=== PATIENT | female | born 1935 | race Caucasian/White ===

== ENCOUNTER 2016-07-07 07:00 | Outpatient (CLI) | payer MEDICARE ==
[~2016-07-07] VITALS: Ht 154.9 cm; Wt 56.8 kg
[~2016-07-07 07:00] MED LIST: BAYER CHEWABLE81 MG PO; BYSTOLIC5 MG PO; NITRO-DUR0.4 MG TD; PAMELOR10 MG PO; PRAVACHOL20 MG PO; PROTONIX40 MG PO
[2016-07-07 07:22] VITALS: BP 151/71; Ht 154.9 cm; Wt 56.8 kg
[2016-07-07] MEDS ORDERED: PLAVIX75 MG PO (07:28)
[2016-07-07 07:37] LABS: EOSINOPHILS 4.3 % (0-7); HEMATOCRIT 42.7 % (36.0-48.0); HEMOGLOBIN 14.8 g/dL (12-16); IMMATURE GRANULOCYTES 0.2 % (0-5); LYMPHOCYTES 41.6 % (15-50); MCHC 34.7 g/dL (31.0-37.0); MCV 95.3 fL (80.0-100.0); MEAN PLATELET VOLUME 10.3 fL (7.4-10.4); NEUTROPHILS 40.9 % (40-80); PLATELET COUNT 212 10x3/uL (130-400); RBC 4.48 10x6/uL (4.00-5.40); RDW 11.9 % (11.5-14.5)
[2016-07-07 07:41] LABS: ANION GAP 12.5 mmol/L (8-16); CALCIUM 8.9 mg/dL (8.5-10.1); CARBON DIOXIDE 26.4 mmol/L (21.0-32.0); POTASSIUM - SERUM 3.9 mmol/L (3.5-5.1)
--- NOTE | 2016-07-07 09:10 | NUR ---
LYING FLAT, NC 2L IN PLACE WITH NO RESP DISTRESS. NSR W PAC'S. ALL VITALS WNL. NO C/O CHEST PAIN, PULSES PALP X4. R GROIN 5F VASCADE C/D/I WITH NO HEMATOMA OR BLEEDING. SON AT BEDSIDE.
--- NOTE | 2016-07-07 14:41 | NUR ---
1000 PT DENIES ANY C/O. RR EVEN AND UNLABORED. RIGHT GROIN DRESSING CDI, GROIN IS SOFT WITH NO BLEEDING OR HEMATOMA NOTED. PEDAL PULSES PALPABLE. FEET WARM TO TOUCH. SON AT BEDSIDE.
--- NOTE | 2016-07-07 14:42 | NUR ---
1100 PT HAS TOLERATED SANDWICH WITH NO C/O NAUSEA. IV HAS BEEN DC'D WITH CATH INTACT. ASSISTED PT TO THE BATHROOM AND PT VOIDED QS. PT DRESSING FOR DC TO HOME. 1115 PT ESCORTED TO PRIVATE AUTO VIA WC BY STAFF WITH SON DRIVING HER HOME. PT DENIES ANY C/O.
--- NOTE | 2016-07-09 13:59 | OP ---
PATIENT NAME: MONSE HERNANDEZ MEDICAL RECORD: [id number] :31 LOCATION:[facility] ADMISSION DATE: SURGEON: TONY PEDERSEN MD DATE OF OPERATION: 07/07/2016 PROCEDURES: 1. PTCA left heart catheterization. 2. Selective coronary angiography. 3. Left ventriculogram. INDICATION: Chest pain compatible with angina, coronary artery disease, and previous cardiac stenting. PROCEDURE IN DETAIL: After informed consent was obtained and after detailed explanation of risks, benefits as well as alternative therapies, the patient elected to proceed with angiogram and heart catheterization. The right femoral area is prepped and draped in normal sterile fashion. Right femoral artery was cannulated via modified Seldinger technique with placement of 5-Irish sheath. All catheters exchanged through this sheath. FINDINGS: Left ventriculogram was performed in standard 30-degree FRITZ view, reveals good cardiac wall motion throughout all segments. Overall ejection fraction estimated at 55% to 60%. SELECTIVE CORONARY ANGIOGRAPHY: 1. Left main is with no significant angiographic disease. 2. Left anterior descending has previously placed stent with that is widely patent with no significant restenosis. No disease elsewise throughout the LAD or its branches. 3. Left circumflex shows moderate irregularities, but no flow-limiting stenosis. 4. Right coronary has moderate irregularities, but no flow-limiting stenosis. OVERALL IMPRESSION: Wide patency of the previously placed stent with no significant restenosis. No disease elsewise. Continue medical management of the coronary artery disease and cardiac risk factors. TRANSINT:[id number] Voice Confirmation ID: [id number] DOCUMENT ID: [id number] TONY PEDERSEN MD at 1359 CC: [id number] DICTATION DATE: 07/07/16 0842 [place] PILOT: 07/07/16 0856 DEP CLI 07/07/16 [place] [id number]
== END 2016-07-07 11:15 | disposition home or self-care (01) ==
LOC: D.CATH 07:00
PROVIDERS: Internal Medicine Interventional Cardiology
DX: I25.119 Atherosclerotic heart disease of native coronary artery with unspecified angina pectoris (principal); Z95.5 Presence of coronary angioplasty implant and graft

== ENCOUNTER → 2019-10-27 11:04 | Outpatient (CLI) | payer MEDICARE, OTHER ==
[2016-07-07 07:22] VITALS: BMI 23.6
[~2019-10-27 11:04] MED LIST changes: +PLAVIX75 MG PO
== END | disposition home or self-care (01) ==
LOC: D.CT 11:04
PROVIDERS: ATTEND Family Medicine
DX: I73.9 Peripheral vascular disease, unspecified (principal)

== ENCOUNTER → 2020-03-15 09:02 | Outpatient (CLI) | payer MEDICARE, OTHER ==
[2016-07-07 07:22] VITALS: BMI 23.6
== END | disposition home or self-care (01) ==
LOC: D.CT 09:02
PROVIDERS: ATTEND Family Medicine
DX: R22.1 Localized swelling, mass and lump, neck (principal)